=== PATIENT | female | born 1955 | race African-American/Black ===

== ENCOUNTER 2024-03-22 23:51 | Emergency (ER) | payer MEDICAID, OTHER ==
[~2024-03-22] VITALS: Ht 172.7 cm; Wt 77.8 kg
[~2024-03-22 23:51] MED LIST: LOVASTATIN; METF-414 PO
[2024-03-23 00:07] VITALS: O2SAT 100
[2024-03-23] MEDS ORDERED: FAMOTIDINE 20MG/2ML VIAL IV ONE (02:15)
[2024-03-23] MEDS: ACETAMINOPHEN 325MG TABLET PO ONE (02:26)
[2024-03-23 03:20] VITALS: BP 154/77; PULSE 66; RESP 17; TEMP 36.61404; O2SAT 100
== END 2024-03-23 03:25 | disposition home or self-care (01) ==
LOC: ER 23:51
DX: S09.90XA Unspecified injury of head, initial encounter (principal); K59.00 Constipation, unspecified; F41.9 Anxiety disorder, unspecified; G44.309 Post-traumatic headache, unspecified, not intractable; E11.9 Type 2 diabetes mellitus without complications; I10 Essential (primary) hypertension; Z87.440 Personal history of urinary (tract) infections; Z79.84 Long term (current) use of oral hypoglycemic drugs; W22.8XXA Striking against or struck by other objects, initial encounter; W22.03XA Walked into furniture, initial encounter; Y92.89 Other specified places as the place of occurrence of the external cause; Y99.8 Other external cause status
CPT/HCPCS: 12001; 99284